=== PATIENT | male | born 1990 | race Caucasian/White ===

== ENCOUNTER 2022-09-06 08:29 | Emergency (ER) | payer OTHER ==
[~2022-09-06] VITALS: Ht 185.4 cm; Wt 113.4 kg
[~2022-09-06 08:29] MED LIST: AMOX500 PO; AZIT250 PO; CARI350 PO; CETI10 PO; CRUTCH4 USE; HYDACE5 PO; IBUP400; IBUP600 PO; NAPR500 PO; PROM25 PO; RXOXYACE PO; RXTRAM50 PO; SULF10OPSA OS; TRAM50 PO
[2022-09-06 10:18] LABS: BASOPHILS ABSOLUTE AUTO 0.02 K/mm3 (0.00-0.23); BASOPHILS PERCENT AUTO 0 % (0-2); EOSINOPHILS PERCENT AUTO 0 % (0-6); Hematocrit 46.9 % (37.0-53.0); Hemoglobin 16.4 g/dL (13.5-17.5); IMMATURE GRAN ABSOLUTE AUTO 0.05 K/mm3 (0.00-0.10); IMMATURE GRAN PERCENT AUTO 0 % (0-1); LYMPHOCYTES PERCENT AUTO 7 % (21-46); MONOCYTES ABSOLUTE AUTO 1.06 K/mm3 (0.16-1.47); MONOCYTES PERCENT AUTO 9 % (4-13); Mean Corpuscular HGB 31.1 pg (26.0-34.0); Mean Corpuscular Volume 89 fL (80-100); Mean Platelet Volume 10.2 fL (9.1-12.4); NEUTROPHILS PERCENT AUTO 83 % (41-73); Platelet Count 179 K/mm3 (150-400); RDW Coefficient Variation 11.7 % (11.7-14.2); RDW Standard Deviation 37.4 fL (35.1-46.3); Red Blood Cell Count 5.28 M/mm3 (4.30-5.90); White Blood Cell Count 11.43 K/mm3 (4.00-11.30)
[2022-09-06 10:47] LABS: Bun/Creatinine Ratio 15.4 (12.0-20.0); Calcium, Blood 8.5 mg/dL (8.5-10.1); Creatinine, Blood 0.78 mg/dL (0.60-1.20); Potassium, Blood 3.7 mmol/L (3.5-5.5)
[2022-09-06] MEDS ORDERED: ONDA4ODT MM (12:03)
== END 2022-09-06 12:05 | disposition home or self-care (01) ==
LOC: ER 08:29
PROVIDERS: Physician Assistant
DX: K52.9 Noninfective gastroenteritis and colitis, unspecified (principal); Z87.891 Personal history of nicotine dependence
CPT/HCPCS: 36415; 80048; 83690; 85025; J1885; J2405; J7030

== ENCOUNTER 2022-12-07 19:55 | Emergency (ER) | payer BC ==
[~2022-12-07] VITALS: Ht 185.4 cm; Wt 113.4 kg
[~2022-12-07 19:55] MED LIST changes: +ONDA4ODT MM
[2022-12-07 20:31] VITALS: BP 139/105
[2022-12-07] MEDS ORDERED: AMOCLA875 PO (20:35)
== END 2022-12-07 20:52 | disposition home or self-care (01) ==
LOC: ER 19:55
DX: K02.9 Dental caries, unspecified (principal); F17.290 Nicotine dependence, other tobacco product, uncomplicated
CPT/HCPCS: A9270